=== PATIENT | male | born 1965 | race Caucasian/White ===

== ENCOUNTER 2021-04-21 09:34 | Observation (INO) ==
[2021-04-21] MEDS ORDERED: NS 0.9% 1000 ml BAG 1,000 ML IV ONE ×3 (09:46→18:50)
[2021-04-21 10:26] LABS: ABS Lymphocytes 0.5 10^3/ul (1.0-4.8); ABS Monocytes 0.2 10^3/ul (0-0.8); ABS Neutrophils 3.7 10^3/ul (1.5-7.7); Hematocrit 42 % (42-52); Hemoglobin 14.2 g/dL (14.0-18.0); Lymphocyte % 11.6 %; Mean Corpuscular HGB Conc 34 g/dL (31-36); Mean Corpuscular Hemoglobin 30 pg (27-31); Mean Corpuscular Volume 90 fL (80-94); Platelet Count 100 10^3/uL (150-450); Red Blood Count 4.71 10^6 /uL (4.18-5.48); Red Cell Distribution Width 13 % (10-15); White Blood Count 4.5 10^3/uL (3.5-10.8)
[2021-04-21 10:41] LABS: Albumin 3.8 g/dL (3.2-5.2); Albumin/Globulin Ratio 1.4 (1-3); C Reactive Protein 141.58 mg/L (<8.01); Calcium 8.2 mg/dL (8.6-10.3); EGFR African American 74.9 (>60); EGFR Non-African American 61.9 (>60); Globulin 2.8 g/dL (2-4); Potassium 2.9 mmol/L (3.5-5.0); Total Bilirubin 0.9 mg/dL (0.2-1.0); Total Protein 6.6 g/dL (6.4-8.9)
[2021-04-21 10:42] LABS: Influenza A Molecular Negative (Negative); Influenza B Molecular Negative (Negative); Troponin I 0.02 ng/mL (<0.03)
[2021-04-21] MEDS ORDERED: Potassium Chlor 20 meq TAB.ER PO ONE ×2 (11:04→20:10)
[2021-04-21] MEDS ORDERED: KCL 20 MEQ/100 ML IVPREMIX 20 MEQ/100 ML BAG IV ONE (11:04)
[2021-04-21 14:09] LABS: Troponin I 0.03 ng/mL (<0.03)
[2021-04-21] MEDS ORDERED: Iohexol 350 (CONTRAST) 500 ML MDV IV ONE (14:55)
[2021-04-21] MEDS ORDERED: Iodixanol (CONTRAST) 320 MG/ML 100 ML SDV IV ONE (16:08)
[2021-04-21 17:04] LABS: Troponin I 0.02 ng/mL (<0.03)
[2021-04-21] MEDS ORDERED: Cefepime 2 GM in Dextrose 2 GM/50 ML BAG IV ONE (18:56)
[2021-04-21] MEDS ORDERED: Ondansetron 4 mg VIAL 2 MG/ML 2 ml VIAL IV PRN (20:06)
[2021-04-21 20:27] LABS: Magnesium 1.6 mg/dL (1.9-2.7)
[2021-04-21] MEDS ORDERED: DOXYcycline 100 MG in NS 0.9% 250 ml 250 ML IVPB SCH (21:00)
[2021-04-21] MEDS: Lactated Ringers 1000 ml BAG 1,000 ML IV SCH ×2 (21:13→22:44)
[2021-04-21] MEDS ORDERED: Lactated Ringers 1000 ml BAG 1,000 ML IV ONE (22:12)
[2021-04-21] MEDS: DOXYcycline 100 MG in NS 0.9% 250 ml 250 ML IVPB SCH (22:44)
[2021-04-21] MEDS: Heparin 5000 UNITS/ML 1 mL VIAL SUBCUT SCH (22:44)
[2021-04-21 22:53] LABS: Activated Partial Thrombo Time 34.3 seconds (26.0-38.0); INR 1.31 (0.82-1.09)
[2021-04-21] MEDS: Magnesium Sulfate 2 gm BAG 2 GM/50 ML BAG IVPB ONE (23:52)
[2021-04-22] MEDS: Magnesium Sulfate 2 gm BAG 2 GM/50 ML BAG IVPB ONE (01:06)
[2021-04-22 05:46] LABS: Calcium 8.2 mg/dL (8.6-10.3); EGFR African American 86.2 (>60); EGFR Non-African American 71.3 (>60); Potassium 3.4 mmol/L (3.5-5.0)
[2021-04-22 06:12] LABS: Hematocrit 45 % (42-52); Hemoglobin 14.9 g/dL (14.0-18.0); Mean Corpuscular HGB Conc 33 g/dL (31-36); Mean Corpuscular Hemoglobin 30 pg (27-31); Mean Corpuscular Volume 91 fL (80-94); Red Blood Count 4.93 10^6 /uL (4.18-5.48); Red Cell Distribution Width 14 % (10-15); White Blood Count 4.9 10^3/uL (3.5-10.8)
[2021-04-22] MEDS: Heparin 5000 UNITS/ML 1 mL VIAL SUBCUT SCH ×2 (06:12→14:43)
[2021-04-22 07:12] LABS: ABS Lymphocytes 0.5 10^3/ul (1.0-4.8); ABS Monocytes 0.2 10^3/ul (0-0.8); ABS Neutrophils 4.2 10^3/ul (1.5-7.7); Eosinophil % 0.1 %; Lymphocyte % 10.4 %; Nucleated Red Blood Cells % 0.1
[2021-04-22 07:25] LABS: Mean Platelet Volume 11.1 fL (7.4-10.4); Platelet Count 74 10^3/uL (150-450)
[2021-04-22 08:06] LABS: Magnesium 2.3 mg/dL (1.9-2.7)
[2021-04-22 10:02] VITALS: BP 127/71
[2021-04-22] MEDS: DOXYcycline 100 MG in NS 0.9% 250 ml 250 ML IVPB SCH (10:06)
[2021-04-22] MEDS: Lactated Ringers 1000 ml BAG 1,000 ML IV SCH (12:48)
[2021-04-25 07:46] LABS: B garinii/B afzelii PCR Negative (Negative); B mayonii PCR Negative (Negative)
[2021-04-25 16:20] LABS: Anaplasma phagocytophilium <1:64 titer (<1:64); Ehrlichia chaffeensis IgG AB <1:64 titer (<1:64); Lyme Disease Serology Negative (Negative)
[2021-04-28 14:03] LABS: Anaplasma phagocytophilum Positive (Negative); B. miyamotoi PCR, B Negative (Negative); Babesia divergens/MO-1 Negative (Negative); Babesia ducani Negative (Negative); Ehrlichia chaffeensis Negative (Negative); Ehrlichia ewingii/canis Negative (Negative); Ehrlichia muris eauclairensis Negative (Negative)
== END 2021-04-22 16:10 | disposition home or self-care (01) ==
LOC: MED 09:34 → ED 09:34 → MED 21:38
PROVIDERS: ADMIT Hospitalist; ATTEND Pediatrics